=== PATIENT | female | born 1940 | race Caucasian/White ===

== ENCOUNTER → 2017-02-22 | Outpatient (CLI) | payer MEDICARE, BC ==
[2014-09-29 10:40] VITALS: BP 183/86
[~2017-02-22] MED LIST: ALPR0.254 PO; ASPI-630 PO; CHOL100014 PO; FAMO20TA5 PO; METO50TA29 PO; QUET25TA PO
--- NOTE | 2017-02-22 09:37 | RAD ---
DATE: 02/22/2017 EXAM: MAMMO ANURADHA SCREENING BILATERAL HISTORY: Routine screening COMPARISON: 02/22/2016 This study was interpreted with the benefit of Computerized Aided Detection (CAD). The breast parenchyma shows scattered fibroglandular densities. Breast parenchyma level B. FINDINGS: 2-D and 3-D tomosynthesis imaging was performed in CC and MLO projections. The fibroglandular pattern is heterogeneous and slightly nodular in character. Several small smooth benign-appearing nodules are again noted in both breast, better delineated on the current tomographic images. No new or enlarging breast densities are seen. Benign type calcifications are present. No suspicious microcalcifications have developed. IMPRESSION: There is no mammographic evidence of malignancy either breast. BI-RADS CATEGORY: 2 BENIGN FINDING(S) RECOMMENDED FOLLOW-UP: 12M 12 MONTH FOLLOW-UP PQRS compliance statement: Patient information was entered into a reminder system with a target due date for the next mammogram. Mammography is a sensitive method for finding small breast cancers, but it does not detect them all and is not a substitute for careful clinical examination. A negative mammogram does not negate a clinically suspicious finding and should not result in delay in biopsying a clinically suspicious abnormality. "Our facility is accredited by the [employer] Mammography [employer]."
== END | disposition home or self-care (01) ==
LOC: MAMMO 07:53
PROVIDERS: ATTEND Family Medicine
DX: Z12.31 Encounter for screening mammogram for malignant neoplasm of breast (principal)
CPT/HCPCS: 77063; G0202; 77067

== ENCOUNTER → 2017-04-12 | Outpatient (CLI) | payer MEDICARE, BC ==
[2014-09-29 10:40] VITALS: BP 183/86
--- NOTE | 2017-04-12 10:30 | RAD ---
Bone densitometry scan, 04/12/2017: History: Osteoporosis screening The lumbar spine and right hip were examined utilizing a DEXA technique. The bone mineral density in the lumbar spine as measured from the L1-L4 levels is 1.29 g/sq cm. This yields a T score of 0.9 which is in the normal range. The lumbar spine T score on the previous study of 03/30/2015 was 0.1. The total T score at the right hip is -0.6 which is also in the normal range. This is the same value obtained on the 03/30/2015 study. IMPRESSION: Normal bone mineral density measurements.
== END | disposition home or self-care (01) ==
LOC: DXRAD 09:29
PROVIDERS: ATTEND Family Medicine
DX: Z13.820 Encounter for screening for osteoporosis (principal); Z78.0 Asymptomatic menopausal state; Z85.3 Personal history of malignant neoplasm of breast
CPT/HCPCS: 77080

== ENCOUNTER → 2018-02-25 | Outpatient (CLI) | payer MEDICARE, BC ==
[2014-09-29 10:40] VITALS: BP 183/86
--- NOTE | 2018-02-25 13:29 | RAD ---
DATE: 02/25/2018 EXAM: MAMMO ANURADHA SCREENING BILATERAL HISTORY: Routine screening COMPARISON: 02/22/2017 This study was interpreted with the benefit of Computerized Aided Detection (CAD). Breast Density: SCATTERED The breast parenchyma shows scattered fibroglandular densities. Breast parenchyma level B. FINDINGS: 2-D and 3-D tomosynthesis imaging was performed in CC and MLO projections. There are several small smooth stable nodules in both breasts. No new or enlarging breast densities are seen. There are stable microcalcifications in both breasts. No suspicious microcalcifications have developed. IMPRESSION: Stable mammograms without evidence of malignancy. BI-RADS CATEGORY: 2 BENIGN FINDING(S) RECOMMENDED FOLLOW-UP: 12M 12 MONTH FOLLOW-UP PQRS compliance statement: Patient information was entered into a reminder system with a target due date for the next mammogram. Mammography is a sensitive method for finding small breast cancers, but it does not detect them all and is not a substitute for careful clinical examination. A negative mammogram does not negate a clinically suspicious finding and should not result in delay in biopsying a clinically suspicious abnormality. "Our facility is accredited by the [employer] Mammography [employer]."
== END | disposition home or self-care (01) ==
LOC: MAMMO 08:31
PROVIDERS: ATTEND Family Medicine
DX: Z12.31 Encounter for screening mammogram for malignant neoplasm of breast (principal)
CPT/HCPCS: 77063; 77067

== ENCOUNTER → 2019-02-26 | Outpatient (CLI) | payer MEDICARE, BC ==
[2014-09-29 10:40] VITALS: BP 183/86
--- NOTE | 2019-02-26 15:45 | RAD ---
DATE: 02/26/2019. EXAM: MAMMO ANURADHA SCREENING BILATERAL. HISTORY: Routine mammographic screening. COMPARISON: 02/25/2018. This study was interpreted with the benefit of Computerized Aided Detection (CAD). FINDINGS: Breast Density: SCATTERED The breast parenchyma shows scattered fibroglandular densities. Breast parenchyma level B.. Scattered and coarse calcifications are benign. Small nodules have stable correlates. There are no suspicious masses, microcalcifications or architectural distortion. BI-RADS CATEGORY: 2 BENIGN FINDING(S). RECOMMENDED FOLLOW-UP: 12M 12 MONTH FOLLOW-UP. PQRS compliance statement: Patient information was entered into a reminder system with a target due date 02/27/2020 for the next mammogram. Mammography is a sensitive method for finding small breast cancers, but it does not detect them all and is not a substitute for careful clinical examination. A negative mammogram does not negate a clinically suspicious finding and should not result in delay in biopsying a clinically suspicious abnormality. "Our facility is accredited by the [employer] Mammography [employer]."
== END | disposition home or self-care (01) ==
LOC: MAMMO 10:06
PROVIDERS: ATTEND Family Medicine
DX: Z12.31 Encounter for screening mammogram for malignant neoplasm of breast (principal); N64.89 Other specified disorders of breast
CPT/HCPCS: 77063; 77067

== ENCOUNTER → 2019-03-25 | Outpatient (CLI) | payer MEDICARE, BC ==
[2014-09-29 10:40] VITALS: BP 183/86
--- NOTE | 2019-03-25 11:23 | RAD ---
EXAM: Dual energy x-ray absorptiometry (DEXA). HISTORY: Post menopausal screening. TECHNIQUE: Dual energy x-ray absorptiometry of the lumbar spine and the right hip was performed. T-score of average bone mineral density based was calculated based on standard deviations above or below the expected young adult normal value. Diagnostic definitions were established by the World Health Organization. FINDINGS: The average bone mineral density associated with L1-L4 is 1.434 g/cm^2, corresponding with a T-score of 2.6. The average total bone mineral density associated with the right hip is 0.826 g/cm^2, corresponding with a T-score of -1.1. In comparison with the baseline study of 03/30/2015, average bone mineral density at the lumbar spine has changed +20.4%, while the average density at the hips has changed -6.3%. Refer to the worksheets for full detail. IMPRESSION: 1. Osteopenia. Average bone mineral density yields a T-score between -1.0 and -2.5. Fracture risk is increased. Electronically signed by: Nicolas Santos MD (03/25/2019 11:20 AM) [facility]
== END | disposition home or self-care (01) ==
LOC: DXRAD 09:37
PROVIDERS: ATTEND Surgery
DX: M85.88 Other specified disorders of bone density and structure, other site (principal); Z78.0 Asymptomatic menopausal state
CPT/HCPCS: 77080

== ENCOUNTER → 2020-03-17 | Outpatient (CLI) | payer MEDICARE, BC ==
[2014-09-29 10:40] VITALS: BP 183/86
--- NOTE | 2020-03-18 10:19 | RAD ---
BILATERAL SCREENING MAMMOGRAM, 3-D History: Routine screening. Comparison: 03/07/2019 02/25/2018, 02/22/2017, 02/22/2016. Technique: MLO and CC digital tomosynthesis (3D) images obtained. Radiologist reviewed these images on dedicated workstation. Findings: Breast Tissue Density B : There are scattered areas of fibroglandular density. There are no dominant masses, suspicious microcalcifications, or architectural distortion. IMPRESSION: No mammographic evidence of malignancy. Recommend routine screening. BI-RADS category 1: Negative. The images were reviewed with computer-aided detection. Patient information is entered into reminder system with a target due date for the next screening mammogram. Mammography is the most sensitive method for finding small breast cancers, but it does not detect them all and is not a substitute for careful clinical examination. A negative mammogram does not negate a clinically suspicious finding and should not result in delay in biopsying a clinically suspicious abnormality. "Our facility is accredited by the [employer] Mammography Program." Electronically signed by: Gerry Montano MD (03/18/2020 10:16 AM) [id number]
== END ==
LOC: MAMMO 08:45
PROVIDERS: ATTEND Family Medicine
DX: Z12.31 Encounter for screening mammogram for malignant neoplasm of breast (principal)
CPT/HCPCS: 77063; 77067

== ENCOUNTER → 2021-03-22 | Outpatient (CLI) | payer MEDICARE, BC ==
[2014-09-29 10:40] VITALS: BP 183/86
[~2021-03-22] MED LIST changes: -QUET25TA PO; +QUET25TA3 PO
--- NOTE | 2021-03-22 16:53 | RAD ---
BILATERAL DIGITAL SCREENING 2-D MAMMOGRAM INDICATION: Routine screening. COMPARISON: February 25, 2018, February 26, 2019 and March 17, 2020 Interpretation was made using CAD. FINDINGS: Breast Density: There are scattered areas of fibroglandular density. RIGHT BREAST: No suspicious masses, calcifications or areas of architectural distortion are seen. LEFT BREAST: No suspicious masses, calcifications or areas of architectural distortion are seen. IMPRESSION: 1. No imaging evidence of malignancy. ASSESSMENT: BI-RADS 1. Negative. RECOMMENDATION: Routine annual screening mammogram. The facility will notify the patient of the results via mail. Patient information will be entered int o the mammography reminder system with a target recall date for the next mammogram. A reminder letter will be generated by the facility. Electronically signed by: Anny Hernandez MD (03/22/2021 4:50 PM) [id number]
== END ==
LOC: MAMMO 08:51
PROVIDERS: ATTEND Family Medicine
DX: Z12.31 Encounter for screening mammogram for malignant neoplasm of breast (principal)
CPT/HCPCS: 77067

== ENCOUNTER → 2021-03-31 | Outpatient (CLI) | payer MEDICARE, BC ==
[2014-09-29 10:40] VITALS: BP 183/86
--- NOTE | 2021-03-31 10:52 | RAD ---
EXAM: DUAL ENERGY X-RAY ABSORPTIOMETRY (DEXA). HISTORY: Postmenopausal screening. FINDINGS: The lowest measured T-score is -2.1 in the right femoral neck, based on a bone mineral dens ity of 0.672 g/cm^2. Refer to the worksheets for full detail. There has been a 4.2 percent decrease in density of the right hip and 8.2 percent increase in density of the lumbar spine compared to a study performed 03/30/2015. IMPRESSION: 1. Low bone mass. Bone mineral density yields a T-score between -1.0 and -2.5. Fracture risk is incre ased. 2. FRAX report: Not calculated. METHODOLOGY: Dual energy x-ray absorptiometry was performed to measure bone mineral density. The foll owing analysis is based on the 2019 Official Positions of the International Society for Clinical Dens itometry: Measurements of the hips and the average of L1-L4 are preferred. When the spine and/or hip cannot be feasibly measured or interpreted, or in the setting of hyperparathyroidism, distal radial bone minera l density may be measured. The lumbar spine T-score is based on the average bone mineral density of L1-L4. In the setting of art ifact or anatomic abnormality, some lumbar levels may be excluded, and the remaining levels used for calculation. A single lumbar level is not used for diagnosis, and if only a single level is available for assessment, another anatomic site will be used to assign a diagnosis. The hip T-score is based on the bone mineral density measurement of the femoral neck or total proxima l femur of either side, whichever is lowest. Bilateral mean values are not used for diagnosis. The forearm T-score is derived from 33% of the distal radius of the nondominant forearm. Electronically signed by: Ramona Reaves MD (03/31/2021 10:50 AM) [id number]
== END ==
LOC: DXRAD 09:41
PROVIDERS: ATTEND Family Medicine
DX: M85.80 Other specified disorders of bone density and structure, unspecified site (principal); N95.8 Other specified menopausal and perimenopausal disorders; Z78.0 Asymptomatic menopausal state
CPT/HCPCS: 77080

== ENCOUNTER → 2021-08-10 | Outpatient (CLI) | payer MEDICARE, BC ==
[2014-09-29 10:40] VITALS: BP 183/86
--- NOTE | 2021-08-10 10:31 | RAD ---
Complete Abdominal Ultrasound: Clinical History: Reason: JAUNDICE / Spl. Instructions: / History: Technique: Sonographic examination of the abdomen was performed and multiple static images were obta ined. Findings: Liver: The majority is visualized and appears homogeneous. The intrahepatic biliary tree appears mode rately dilated. The main portal vein is not well seen although there is hepatopedal flow. Common bile duct: Appears normal measures 4 mm in diameter. Gallbladder: Not visualized. Portal vein: Appears normal. Pancreas: is not well visualized due to overlying bowel gas but appears within normal limits. Right kidney: appears normal and measures 9 cm in length. Left kidney appears normal and measures 11 cm in length. Spleen: Not enlarged. Impression: 1. Mildly dilated intrahepatic biliary tree however the common bile duct appears normal. A [place] t umor can cause this appearance. 2. Poor visualization of the Main portal vein could be secondary to cavernous transformation. Recommend further workup with an MRI of the liver with and without contrast. If the patient is not a candidate for MRI CT could be performed. Electronically signed by: Malik Kimball III, MD (08/10/2021 10:29 AM) [facility]
== END ==
LOC: US 08:41
PROVIDERS: ATTEND Physician Assistant
DX: R17 Unspecified jaundice (principal)
CPT/HCPCS: 76700